=== PATIENT | female | born 1980 | race Caucasian/White ===

== ENCOUNTER 2020-12-27 00:15 | Emergency (ER) | payer SELFPAY ==
[2020-12-27 00:48] VITALS: BP 154/85; PULSE 72; TEMP 99.2; BMI 25.7
[2020-12-27] MEDS ORDERED: ALBUTEROL SO4 2.5/IPRATROPIUM 0.5 INH SOL 3 ML VIAL.NEB. NEB ONE ×2 (01:22→01:28)
[2020-12-27] MEDS ORDERED: DEXAMETHASONE SOD PHOSPHATE 10 MG/1 ML VIAL IM ONE (01:22)
[2020-12-27] MEDS ORDERED: DEXAMETHASONE SOD PHOSPHATE 10 MG/1 ML VIAL ONE (01:28)
== END 2020-12-27 03:01 | disposition home or self-care (01) ==
LOC: JER 00:15
PROC: 3E0F7GC Introduction of Other Therapeutic Substance into Respiratory Tract, Via Natural or Artificial Opening (ICD-10-PCS; principal; 2020-12-27)
PROC: 3E023GC Introduction of Other Therapeutic Substance into Muscle, Percutaneous Approach (ICD-10-PCS; 2020-12-27)
DX: J20.9 Acute bronchitis, unspecified (principal)
CPT/HCPCS: 87804; 87807; 99284-25; C9803; J1100; U0003; U0005

== ENCOUNTER 2023-12-22 15:00 | Emergency (ER) | payer SELFPAY ==
[2023-12-22 15:42] VITALS: BMI 26.5
[2023-12-22 16:47] LABS: HCG,QUALITATIVE URINE Negative
[2023-12-22 16:49] LABS: BASO % 0.4 % (0-2.0); EOS % 1.4 % (0-4.5); HEMATOCRIT 45.6 % (32.4-45.2); HEMOGLOBIN 15.4 GM/dL (10.7-15.3); LYMPH % 21.4 % (8-40); MCH 30.9 pg (25.7-33.7); MCHC 33.7 g/dl (32.0-36.0); MEAN CELL VOLUME 91.5 fl (80-96); MEAN PLT VOLUME 8.7 fl (7.5-11.1); MONO % 5.2 % (3.8-10.2); NEUT % 71.6 % (42.8-82.8); PLATELET COUNT 270 10^3/uL (134-434); RBC 4.98 M/mm3 (3.60-5.2); RDW 13.7 % (11.6-15.6); WHITE BLOOD COUNT 12.3 K/mm3 (4.0-10.0)
[2023-12-22 16:59] LABS: URINE APPEARANCE CLEAR; URINE BILIRUBIN NEGATIVE (NEGATIVE); URINE COLOR YELLOW; URINE GLUCOSE (UA) NEGATIVE (NEGATIVE); URINE KETONE NEGATIVE (NEGATIVE); URINE LEUK ESTERASE NEGATIVE (NEGATIVE); URINE NITRITE NEGATIVE (NEGATIVE); URINE PROTEIN NEGATIVE (NEGATIVE); URINE UROBILINOGEN 0.2 mg/dL (0.2-1.0)
[2023-12-22 17:05] LABS: ALBUMIN 4.6 g/dl (3.4-5.0)
[2023-12-22 17:06] LABS: BLOOD UREA NITROGEN 8.3 mg/dL (7-18)
[2023-12-22 17:09] LABS: CREATININE 0.8 mg/dL (0.55-1.3)
[2023-12-22 17:10] LABS: BILIRUBIN,TOTAL 0.4 mg/dL (0.2-1)
[2023-12-22] MEDS ORDERED: LORazepam 1 MG TABLET ONE (18:18)
[2023-12-22 18:23] LABS: POTASSIUM 3.9 mmol/L (3.5-5.1)
[2023-12-22] MEDS: LORazepam 0.5 MG TABLET PO ONE (18:24)
[2023-12-22 19:35] VITALS: BP 131/83; PULSE 73; RESP 20; TEMP 97.7
== END 2023-12-22 19:40 | disposition home or self-care (01) ==
LOC: JER 15:00
DX: R42 Dizziness and giddiness (principal); F41.9 Anxiety disorder, unspecified
CPT/HCPCS: 36415; 80053; 81003; 84484; 84703; 85025; 93005; 93010; 99284-25